=== PATIENT | female | born 1995 | race African-American/Black ===

== ENCOUNTER 2021-07-03 10:46 | Emergency (ER) | payer SELFPAY ==
[~2021-07-03] VITALS: Ht 160 cm; Wt 89.8 kg
[2021-07-03] MEDS ORDERED: IPRATROPIUM BROM 0.5 MG/2.5ML INH SOL NEB ONE (12:30)
[2021-07-03] MEDS ORDERED: ALBUTEROL SULF 2.5 MG/0.5ML(0.5%) NEB SOLN NEB ONE (12:30)
[2021-07-03] MEDS ORDERED: methylPREDNISolone SOD SUCC 125 MG/2 ML VL IM ONE (12:30)
[2021-07-03] MEDS ORDERED: ALBU108A5 IN (13:03)
[2021-07-03] MEDS ORDERED: PRED20TA2 PO (13:03)
[2021-07-03 13:14] VITALS: BP 152/95
== END 2021-07-03 13:14 | disposition home or self-care (01) ==
LOC: ER 10:46
DX: J45.901 Unspecified asthma with (acute) exacerbation (principal)
CPT/HCPCS: 71045; 94640; 96372; 99283; J2930; J7644